=== PATIENT | female | born 1960 | race Caucasian/White ===

== ENCOUNTER 2016-10-14 19:06 | Emergency (ER) | payer MEDICAID ==
[~2016-10-14] VITALS: Ht 149.9 cm; Wt 60.9 kg
[2016-10-14 19:11] VITALS: TEMP 98.8
[2016-10-14 20:48] LABS: BASO % 0.3 % (0.0-2.0); EOS # 0.1 (0.0-0.7); EOS % 1.9 % (0-4.0); GRAN # 4.6 (1.4-6.5); GRAN % 61.6 % (42.2-75.2); HEMATOCRIT 40.3 % (37.0-47.0); HEMOGLOBIN 13.9 g/dl (12.5-16.0); LYMPH # 2.2 (1.2-3.4); LYMPH % 29.1 % (20.0-51.0); MEAN CELL VOLUME 84 fl (80.0-100.0); MEAN CORPUSCULAR HEMOGLOBIN 29 pg (27.0-31.0); MEAN CORPUSCULAR HGB CONC 35 g/dl (33.0-37.0); MEAN PLATELET VOLUME 11.5 fl (7.4-10.4); MONO # 0.5 (0.1-0.6); MONO % 6.8 % (1.7-9.3); PLATELET COUNT 174 K/mm3 (130-400); WHITE BLOOD COUNT 7.5 K/mm3 (4.8-10.8)
[2016-10-14 20:57] LABS: ADJUSTED CALCIUM 9.8 mg/dL (8.4-10.2); ALBUMIN 4.6 gm/dL (3.5-5.0); BILIRUBIN,TOTAL 0.7 mg/dL (0.0-1.0); CALCIUM 10.3 mg/dL (8.4-10.2); CREATININE, serum 0.66 mg/dL (0.52-1.25); POTASSIUM 3.5 mmol/L (3.4-5.0); TOTAL PROTEIN 8.5 gm/dL (6.4-8.2)
[2016-10-14] MEDS ORDERED: HYGROTON 2525 MG/TAB PO (22:18)
[2016-10-14] MEDS ORDERED: PRINIVIL20 MG PO (22:18)
[2016-10-14 22:30] VITALS: BP 141/79; PULSE 74
== END 2016-10-14 22:31 | disposition home or self-care (01) ==
LOC: COL.ER 19:06
PROVIDERS: Family Medicine
DX: I10 Essential (primary) hypertension (principal); T46.5X6A Underdosing of other antihypertensive drugs, initial encounter; Z91.138 Patient's unintentional underdosing of medication regimen for other reason